=== PATIENT | female | born 1950 | race American Indian/Alaskan Native ===

== ENCOUNTER 2017-03-07 13:07 | Outpatient (CLI) | payer MEDICARE ==
--- NOTE | 2017-03-07 13:53 | Mammography Report ---
Screening mammogram: Routine views are compared to prior exams dating back to 2014. It is intermediate density and symmetrically distributed fibroglandular pattern. A stable small nodule is noted in the right retroareolar region just medial to the nipple. There is a subcutaneous nodule lateral to the nipple demonstrating interval enlargement. There is a the biopsy marker in the infero-medial right breast. The remainder the breast pattern bilaterally is unchanged and unremarkable. CAD used. Impression: Enlarging right subcutaneous nodule. Recommendation: Right breast ultrasound. If this is not a simple cyst or benign lesion related to the skin additional spot compression imaging may be needed. BI-RADS CATEGORY: 0 = Needs additional imaging evaluation ACR BI-RADS MAMMOGRAPHIC CODES: 0 = Needs additional imaging evaluation; 1 = Negative; 2 = Benign; 3 = Probably benign; 4 = Suspicious; 5 = Malignant; 6 = Known biopsy-proven malignancy COMMENT: 1. Dense breast tissue, i.e., adenosis, fibrocystic changes, etc., may obscure an underlying neoplasm. 2. Approximately 10% of cancers are not detected with mammography. 3. A negative mammography report should not delay biopsy if a clinically suspicious mass is present.
== END 2017-03-07 13:08 | disposition home or self-care (01) ==
LOC: SPVWC 13:07
PROVIDERS: ATTEND Obstetrics & Gynecology
DX: Z12.31 Encounter for screening mammogram for malignant neoplasm of breast (principal); I10 Essential (primary) hypertension
CPT/HCPCS: 77067; G0202

== ENCOUNTER 2017-03-23 13:20 | Outpatient (CLI) | payer MEDICARE ==
--- NOTE | 2017-03-23 14:43 | Ultrasound Report ---
Right breast ultrasound: Imaging the right breast at 9:00 location demonstrates a subcutaneous well-circumscribed echolucency measuring 5.2 mm consistent with the mammographic density. Slight distal enhancement. No other findings. Impression: The mammographic nodule is consistent in size and location with the ultrasound cyst. Recommendation: Annual mammogram followup. BI-RADS CATEGORY: 2 = Benign ACR BI-RADS MAMMOGRAPHIC CODES: 0 = Needs additional imaging evaluation; 1 = Negative; 2 = Benign; 3 = Probably benign; 4 = Suspicious; 5 = Malignant; 6 = Known biopsy-proven malignancy COMMENT: 1. Dense breast tissue, i.e., adenosis, fibrocystic changes, etc., may obscure an underlying neoplasm. 2. Approximately 10% of cancers are not detected with mammography. 3. A negative mammography report should not delay biopsy if a clinically suspicious mass is present.
== END 2017-03-23 13:21 | disposition home or self-care (01) ==
LOC: SPVWC 13:20
PROVIDERS: ATTEND Obstetrics & Gynecology
DX: N63.10 Unspecified lump in the right breast, unspecified quadrant (principal); I10 Essential (primary) hypertension